=== PATIENT | female | born 1985 | race Two or more races ===

== ENCOUNTER → 2018-03-12 | Day surgery (SDC) | payer OTHER ==
[2018-03-12] VITALS (7 sets, daily range): BP systolic 106–121; BP diastolic 59–72
[~2018-03-12] VITALS: Ht 160 cm; Wt 61.2 kg
[~2018-03-12] MED LIST: AMOXICILLIN500 MG ORAL; Atropine Inj 1mg/10ml Syr IV PRN; DiphenhydrAMINE 50mg/ml Inj IVP PRN; IBUPROFEN600 MG ORAL; Lidocaine 1% MPF 10mg/ml 5ml ONE; Midazolam 2mg/2ml Inj IVP PRN; NKM; Propofol 200mg/20ml IV ONE; ZANTAC150 MG ORAL; fentaNYL 100 mcg/2 mL IV PRN
--- NOTE | 2018-03-12 08:42 | Anethesia Preoperative Eval ---
Anesthesia Pre-op PMH/ROS General Date of Evaluation: Mar 12, 2018 Time of Evaluation: 08:39 Anesthesiologist: monalisa ASA Score: ASA 2 Mallampati Score Class I : Soft palate, uvula, fauces, pillars visible Class II: Soft palate, uvula, fauces visible Class III: Soft palate, base of uvula visible Class IV: Only hard plate visible Mallampati Classification: Class II Surgeon: danna Diagnosis: gerd Surgical Procedure: egd Anesthesia History: none Social History: smoking - nonsmoker Family History: no anesthesia problems Allergies: Coded Allergies: No Known Allergies (Unverified , 10/03/15) Medications: see eMAR Patient NPO?: Yes Past Medical History Gastrointestinal/Genitourinary: Reports: other - -negative urine HCG HEENT: Reports: other - otitis media, sinusitis, Anesthesia Pre-op Phys. Exam Physician Exam Last Vital Signs Date Time Temp Pulse Resp B/P (MAP) Pulse Ox O2 Delivery O2 Flow Rate FiO2 03/12/18 08:34 Room Air 03/12/18 08:28 98.6 62 18 118/59 99 Constitutional: NAD Neurologic: CN 2-12 intact Cardiovascular: RRR Respiratory: CTA Gastrointestinal: S/NT/ND Airway Exam Mallampati Score: Class II MO: full Neck: supple TMD: 2fb ROM: full Teeth: intact Anesthesia Pre-op A/P Labs Urine Test Test 03/12/18 08:05 Urine HCG, Qualitative Negative (NEGATIVE) Risk Assessment & Plan Assessment: asa2 Plan: mac Status Change Before Surgery: No Pre-Antibiotics Drug: Louann Gamez MD Mar 12, 2018 08:42
--- NOTE | 2018-03-12 09:17 | Pre-Procedure Note/Attestation ---
Pre-Procedure Note/Attestation Complete Prior to Procedure Planned Procedure: not applicable Procedure Narrative: egd Indications for Procedure Pre-Operative Diagnosis: GERD Attestation I attest that I discussed the nature of the procedure; its benefits; risks and complications; and alternatives (and the risks and benefits of such alternatives ), prior to the procedure, with the patient (or the patient's legal sales representative girls[employer] apparel). I attest that, if there was a reasonable possibility of needing a blood transfusion, the patient (or the patient's legal sales representative girls[employer] apparel) was given the [facility] standardized written summary, pursuant to the Steffen Baker Blood Safety Act ([place] Health and Safety Code # 1645, as amended). I attest that I re-evaluated the patient just prior to the surgery and that there has been no change in the patient's H&P, except as documented below: Enio Cali MD Mar 12, 2018 09:17
--- NOTE | 2018-03-12 09:18 | Short Stay Surgery H&P ---
History of Present Illness History of Present Illness Chief Complaint gerd HPI Sweta Madrigal is a 33 year old female who was admitted on for GERD Patient History Allergies: Coded Allergies: No Known Allergies (Unverified , 10/03/15) PAST MEDICAL HISTORY: (1) GERD (gastroesophageal reflux disease) (2) Otitis media Medication History Scheduled Ranitidine Hcl* (Zantac*), 150 MG ORAL DAILY, (Reported) Discontinued Medications Amoxicillin* (Amoxil*), 500 MG ORAL THREE TIMES A DAY Discontinued Reason: Therapy completed Ibuprofen* (Motrin*), 600 MG ORAL Q8H PRN for For Pain Discontinued Reason: Pt stopped taking med Review of Systems Cardiovascular: Reports: no symptoms Respiratory: Reports: no symptoms Skeletal: Reports: no symptoms Gastrointestinal: Reports: gastro esophageal reflux disease Genitourinary: Reports: no symptoms Neurologic: Reports: no symptoms Endocrine: Reports: no symptoms Hematologic: Reports: no symptoms Physical Exam Vital Signs Last Vital Signs Date Time Temp Pulse Resp B/P (MAP) Pulse Ox O2 Delivery O2 Flow Rate FiO2 03/12/18 08:34 Room Air 03/12/18 08:28 98.6 62 18 118/59 99 Labs Laboratory Tests Test 03/12/18 08:05 Urine HCG, Qualitative Negative (NEGATIVE) Skin: normal HENT: normal Heart: normal Lungs: normal Abdomen: normal Extremities: normal Plan Plan of Care EGD Attestation Are the patient's medical conditions optimized for surgery? Attestation Response: yes Enio Cali MD Mar 12, 2018 09:18
--- NOTE | 2018-03-12 09:28 | Endoscopy Procedure Note ---
Endoscopy Procedure Note General Indication for Procedure: GERD Procedures Performed: EGD Operative Findings/Diagnosis: gastritis Specimen: yes Pt Tolerated Procedure Well: Yes Estimated Blood Loss: none Anesthesia Anesthesiologist: monalisa Anesthesia: MAC Inserted Devices Implant(s) used?: No GI Core Measures 50 yrs or older w/o bx or poly: Not Applicable 10yrs. F/U not recommended: Not Applicable Enio Cali MD Mar 12, 2018 09:27
--- NOTE | 2018-03-12 11:14 | Immediate Post-Op Evaluation ---
Immediate Post-Op Evalulation Immediate Post-Op Evalulation Procedure: egd Date of Evaluation: Mar 12, 2018 Time of Evaluation: 09:52 IV Fluids: 225ml 0.9ns Blood Products: none Estimated Blood Loss: negligible Blood Pressure Systolic: 106 Blood Pressure Diastolic: 61 Pulse Rate: 61 Respiratory Rate: 18 O2 Sat by Pulse Oximetry: 100 Temperature (Fahrenheit): 97.9 Pain Score (1-10): 0 Nausea: No Vomiting: No Complications none Patient Status: awake, reacts, patent Hydration Status: adequate Drug: Louann Gamez MD Mar 12, 2018 11:14
--- NOTE | 2018-03-12 11:15 | 48 Hour Post Anesthesia Eval ---
Post Anesthesia Evaluation Procedure: egd Date of Evaluation: Mar 12, 2018 Time of Evaluation: 09:54 Blood Pressure Systolic: 112 0: 62 Pulse Rate: 67 Respiratory Rate: 18 Temperature (Fahrenheit): 97.9 O2 Sat by Pulse Oximetry: 100 Airway: patent Nausea: No Vomiting: No Pain Intensity: 0 Hydration Status: adequate Cardiopulmonary Status: stable Mental Status/LOC: patient returned to baseline Post-Anesthesia Complications: none Follow-up care needed: N/A Louann Sorenson MD Mar 12, 2018 11:15
--- NOTE | 2018-03-12 14:15 | Procedure Note ---
DATE OF PROCEDURE: 03/12/2018 SURGEON: Enio Cali M.D. PROCEDURE: Upper endoscopy with biopsy. ANESTHESIA: Per Dr. Hoffman. INSTRUMENT: Olympus adult flexible upper endoscope. INDICATION: Chronic GERD. REASON FOR PROCEDURE: The procedure, risks, benefits, and possible consequences, including hemorrhage, aspiration, perforation and infection, and alternative treatments, were explained to the patient/legal guardian by Dr. Enio Cali and the patient/legal guardian understood and accepted these risks. PROCEDURE IN DETAIL: After informed consent was obtained and the patient was adequately sedated, Olympus upper endoscope was advanced from the mouth into the second portion of the duodenum and retroflexion was performed in the stomach. The patient had mild diffuse gastritis. Random biopsy from antrum and body was obtained to rule out H. pylori infection. Otherwise, the rest of the upper endoscopic examination grossly looked within normal limits. The patient tolerated the procedure very well without any complication. SUMMARY OF FINDINGS: Gastritis, otherwise normal upper endoscopic examination. RECOMMENDATIONS: Follow up biopsy results and treat accordingly. I want to thank, Dr. Craig, for this kind referral. Enio Cali M.D. DR: SHANTA JOB#: [id number] CC: Rafael Carig M.D.; Fax#: [phone]
== END | disposition home or self-care (01) ==
LOC: GAS 07:56
DX: K21.9 Gastro-esophageal reflux disease without esophagitis (principal); K29.70 Gastritis, unspecified, without bleeding
CPT/HCPCS: 43239; 81025; J2704; 94003; 94150

== ENCOUNTER 2018-04-29 14:56 | Outpatient (CLI) | payer OTHER ==
[~2018-04-29 14:56] MED LIST changes: -Atropine Inj 1mg/10ml Syr IV PRN; -DiphenhydrAMINE 50mg/ml Inj IVP PRN; -Lidocaine 1% MPF 10mg/ml 5ml ONE; -Midazolam 2mg/2ml Inj IVP PRN; -Propofol 200mg/20ml IV ONE; -fentaNYL 100 mcg/2 mL IV PRN
== END 2018-04-29 16:56 | disposition home or self-care (01) ==
LOC: PAN 14:56
DX: A04.8 Other specified bacterial intestinal infections (principal); K29.70 Gastritis, unspecified, without bleeding
CPT/HCPCS: 83013